=== PATIENT | female | born 1995 | race Caucasian/White ===

== ENCOUNTER 2016-11-05 13:12 | Emergency (ER) | payer OTHER ==
[~2016-11-05] VITALS: Ht 165.1 cm; Wt 122.5 kg
--- NOTE | ~2016-11-05 | CR126 ---
[facility] A Service of [facility] & [facility] RADIOLOGY TEXT RESULTS PATIENT: ORIN CENTENO LOCATION: CFTX : [birth year] UNIT #: [id number] AGE: [address]: Kylie Shaver APRN SEX: F ORDER DR: [id number] [facility] [address] [place], [place] [address] [id number] E MR#: [id number] Acc #: [id number] NAME: ORIN CENTENO : 1995 SEX: F STUDY DATE/TIME: 11/05/2016 13:46 UNIT: [facility] ROOM: STUDY DESCRIPTION: CR Foot Complete Min 3 View Lt Attending Physician: Kylie Shaver A.P.R.N. Ordering Physician: Ed Narendra Bolivar M.D. MEDICAL IMAGING REPORT This report is preliminary unless electronic signature is present EXAM Left foot INDICATION Rolled the foot and ankle. Left foot pain. FINDINGS 3 views of the left foot without comparison. There is no acute fracture or dislocation. Alignment is anatomic. No foreign body. IMPRESSION Negative left foot. Dictated by... Nathanael Oliver M.D. THIS IS AN ELECTRONICALLY VERIFIED REPORT Nathanael Oliver M.D. at 11/06/2016 5:15 PM JEAN CARLOS/skyla TD: 11/06/2016 15:53 JOB #: [id number] MEDICAL IMAGING REPORT Page 1 of 1 COPY
--- NOTE | ~2016-11-05 | CR20 ---
[facility] A Service of [facility] & [facility] RADIOLOGY TEXT RESULTS PATIENT: ORIN CENTENO LOCATION: CFTX : [birth year] UNIT #: [id number] AGE: [address]: Kylie Shaver APRN SEX: F ORDER DR: [id number] [facility] [address] [place], [place] [address] [id number] E MR#: [id number] Acc #: [id number] NAME: ORIN CENTENO : 1995 SEX: F STUDY DATE/TIME: 11/05/2016 13:45 UNIT: [facility] ROOM: STUDY DESCRIPTION: CR Ankle Min 3 Views Lt Attending Physician: Kylie Shaver A.P.R.N. Ordering Physician: [facility] MEDICAL IMAGING REPORT This report is preliminary unless electronic signature is present EXAM Left ankle INDICATIONS Trauma. Left ankle pain status post twisting the ankle. TECHNIQUE 3 views of the left ankle without comparison. FINDINGS There is no acute fracture or dislocation. Alignment is anatomic. No foreign body. There is some generalized soft tissue swelling over the medial ankle. IMPRESSION Mild soft tissue swelling. No fracture. Dictated by... Nathanael Oliver M.D. THIS IS AN ELECTRONICALLY VERIFIED REPORT Nathanael Oliver M.D. at 11/06/2016 5:15 PM RPC/gill TD: 11/06/2016 15:52 JOB #: [id number] MEDICAL IMAGING REPORT Page 1 of 1 COPY
== END 2016-11-05 14:47 | disposition home or self-care (01) ==
LOC: CED 13:12 → CFTX 13:12
DX: S93.422A Sprain of deltoid ligament of left ankle, initial encounter (principal); J45.909 Unspecified asthma, uncomplicated; X50.1XXA Overexertion from prolonged static or awkward postures, initial encounter; Y92.009 Unspecified place in unspecified non-institutional (private) residence as the place of occurrence of the external cause
CPT/HCPCS: 29540; 73610; 73630; 99283

== ENCOUNTER 2016-12-07 10:01 | Emergency (ER) | payer OTHER ==
--- NOTE | ~2016-12-07 | CR63 ---
[facility] A Service of [facility] & [facility] RADIOLOGY TEXT RESULTS PATIENT: ORIN CENTENO LOCATION: SED : [birth year] UNIT #: [id number] AGE: [address]: Mayur Centeno MD SEX: F ORDER DR: [id number] [address] [address] [id number] E MR#: [id number] Acc #: [id number] NAME: ORIN CENTENO : 1995 SEX: F STUDY DATE/TIME: 12/07/2016 UNIT: SED ROOM: STUDY DESCRIPTION: CR Chest 2 View Attending Physician: Mayur Centeno M.D. Ordering Physician: Mayur Centeno M.D. Primary Care Physician: Ildefonso Navarro M.D. MEDICAL IMAGING REPORT This report is preliminary unless electronic signature is present. EXAM Chest 2 views 12/07/2016 1158 hours. HISTORY Patient complains of cough, sore throat, congestion, chest pain, and wheezing for a few days. COMPARISON None FINDINGS Upright PA and lateral views of the chest demonstrate low lung volumes and large body habitus. The cardiac, mediastinal and hilar contours are normal. The lungs are clear, and there are no effusions. IMPRESSION The study is limited by low lung volumes and large body habitus. No acute cardiopulmonary findings are seen. Dictated by... Lela Villar M.D. THIS IS AN ELECTRONICALLY VERIFIED REPORT Lela Villar M.D. at 12/08/2016 9:15 AM Abhijit TD: 12/07/2016 18:26 JOB #: [id number] MEDICAL IMAGING REPORT Page 1 of 1
== END 2016-12-07 13:26 | disposition home or self-care (01) ==
LOC: SED 10:01
DX: J20.9 Acute bronchitis, unspecified (principal); J01.00 Acute maxillary sinusitis, unspecified; J01.20 Acute ethmoidal sinusitis, unspecified; Z87.891 Personal history of nicotine dependence
CPT/HCPCS: 71020; 84703; 87651; 94640; 99284